=== PATIENT | male | born 1980 | race American Indian/Alaskan Native ===

== ENCOUNTER 2017-10-06 13:48 | Emergency (ER) | payer OTHER, BC ==
[2017-10-06 14:03] VITALS: BP 118/76; PULSE 57; RESP 16; TEMP 99; O2SAT 99
--- NOTE | 2017-10-06 14:31 | RAD ---
PROCEDURE: Right Wrist Radiographs. HISTORY: fall COMPARISON: None. FINDINGS: BONES: No acute fracture. JOINTS: Unremarkable. SOFT TISSUES: Normal. OTHER FINDINGS: None. IMPRESSION: No demonstrated fracture or dislocation.
--- NOTE | 2017-10-06 15:24 | C.PDOC ---
History Of Present Illness 37 year old male presents to the ED for evaluation of right wrist pain which began after he sustained a fall prior to arrival. Patient denies head injury, loss of consciousness, extremity numbness/weakness. Time Seen by Provider: 10/06/17 14:18 Chief Complaint (Nursing): Upper Extremity Problem/Injury History Per: Patient History/Exam Limitations: no limitations Onset/Duration Of Symptoms: Hrs Current Symptoms Are (Timing): Still Present Quality: "Pain" Additional History Per: Patient Past Medical History Reviewed: Historical Data, Nursing Documentation, Vital Signs Vital Signs: Last Vital Signs Temp 99 F 10/06/17 14:01 Pulse 57 L 10/06/17 14:01 Resp 16 10/06/17 14:01 BP 118/76 10/06/17 14:01 Pulse Ox 99 10/06/17 15:24 - Medical History PMH: No Chronic Diseases Surgical History: No Surg Hx Family History: States: Unknown Family Hx - Social History Hx Alcohol Use: No Hx Substance Use: No - Immunization History Hx Tetanus Toxoid Vaccination: No Hx Influenza Vaccination: No Hx Pneumococcal Vaccination: No Review Of Systems Musculoskeletal: Positive for: Other (right wrist pain ) Neurological: Negative for: Weakness, Numbness Physical Exam - Physical Exam Appears: Non-toxic, No Acute Distress Skin: Normal Color, Warm, Dry Head: Atraumatic, Normacephalic Eye(s): bilateral: Normal Inspection Oral Mucosa: Moist Neck: Normal ROM, Supple Chest: Symmetrical, No Deformity, No Tenderness Extremity: Normal ROM, Tenderness (mild, to dorsum of right wrist ), Capillary Refill (less than 2 seconds ), Swelling (mild, noted to dorsum of right wrist ) Pulses: Left Radial: Normal, Right Radial: Normal Neurological/Psych: Oriented x3, Normal Speech, Normal Cognition, Normal Sensation Gait: Steady ED Course And Treatment O2 Sat by Pulse Oximetry: 99 (on RA) Pulse Ox Interpretation: Normal - Other Rad right wrist XR X-Ray: Interpreted by Me, Viewed By Me, Read By Radiologist Interpretation: PROCEDURE: Right Wrist Radiographs. . HISTORY: fall. COMPARISON: None. FINDINGS: BONES: No acute fracture. JOINTS: Unremarkable. SOFT TISSUES: Normal. OTHER FINDINGS: None. IMPRESSION: No demonstrated fracture or dislocation. Progress Note: Right wrist XR ordered and reviewed. Tylenol PO administered. Cock up splint applied by pyrotechnic mixer and was checked by me. On re-examination, patient is resting comfortably, showing no signs of distress and reports an improvement in his pain. Patient is stable for discharge and is advised to follow up with his PMD within 1-2 days for further evaluation. Disposition - Disposition Disposition: HOME/ ROUTINE Disposition Time: 15:22 Condition: STABLE Additional Instructions: Follow up within 1-2 days. Return to ED if feel worse. Prescriptions: Ibuprofen [Motrin Tab] 600 mg PO Q8 #30 tab Instructions: Wrist Sprain (DC) Forms: [employer] (Mongolian) - Clinical Impression Clinical Impression: Wrist sprain - PA / [employer] / Resident Statement MD/DO has reviewed & agrees with the documentation as recorded. - Scribe Statement The provider has reviewed the documentation as recorded by the Scribe (Lois Rubio) All medical record entries made by the Scribe were at my direction and personally dictated by me. I have reviewed the chart and agree that the record accurately reflects my personal performance of the history, physical exam, medical decision making, and the department course for this patient. I have also personally directed, reviewed, and agree with the discharge instructions and disposition.
== END 2017-10-06 15:35 | disposition home or self-care (01) ==
LOC: C.ER 13:48
DX: S63.501A Unspecified sprain of right wrist, initial encounter (principal); W19.XXXA Unspecified fall, initial encounter